=== PATIENT | male | born 1930 | race Caucasian/White ===

== ENCOUNTER → 2019-04-28 | Outpatient (CLI) | payer MEDICARE ==
[~2019-04-28] MED LIST: ASCO-96 PO; ASPI325T17 PO; BIOTIN PO; CALC1CAP8 PO; CHOL5000 PO; DOCU-131 PO; DOXA4TAB3 PO; DOXY100T23 PO; FISH OIL PO; IRON PO; LOSA25TA25 PO; MECL12.5 PO; MULTIVITAMIN; OMEP-110 PO; OMNIPAQUE 350 MG/ML, 100ML BOTTLE ONE; PROBIOTIC; SAW500CA PO; SIMV80TA18 PO; UBID200C35 PO; VITAMIN E PO
== END | disposition home or self-care (01) ==
LOC: CFH 11:20
PROVIDERS: ATTEND Family Medicine
DX: K76.0 Fatty (change of) liver, not elsewhere classified (principal); K57.30 Diverticulosis of large intestine without perforation or abscess without bleeding; K40.90 Unilateral inguinal hernia, without obstruction or gangrene, not specified as recurrent; M16.12 Unilateral primary osteoarthritis, left hip; M47.816 Spondylosis without myelopathy or radiculopathy, lumbar region; J94.8 Other specified pleural conditions; N28.1 Cyst of kidney, acquired; M51.34 Other intervertebral disc degeneration, thoracic region; I70.0 Atherosclerosis of aorta; R19.03 Right lower quadrant abdominal swelling, mass and lump
CPT/HCPCS: 74177; 82565; Q9967